=== PATIENT | male | born 1955 | race Caucasian/White ===

== ENCOUNTER 2023-01-15 14:42 | Emergency (ER) | payer BC, SELFPAY ==
[2023-01-15] VITALS (7 sets, daily range): BP systolic 130–151; BP diastolic 74–93; PULSE 77–97; RESP 16–18; TEMP 36.6; O2SAT 97–98; BMI 30.2
--- NOTE | 2023-01-15 15:24 | EX.ED.VIS.PS ---
HPI HPI - Psych History of Present Illness Chief Complaint: Suicidal Informant: patient Onset/Context/Timing Onset: Weeks (6 weeks but worse over the last 3 to 4 days) Context: Gradual Onset Timing: Waxes and wanes Worsened by: Situational factors Relieved by: Going to work Associated Symptoms Associated Symptoms - Psych: Positive for Depressed and Suicidal Thoughts; Negative for Paranoia, Visual Hallucinations or Auditory Hallucinations Specific plan (suicidal thought): Shooting self Narrative Narrative: Patient presents with depression and suicidal ideation that has been waxing and waning for the last 6 weeks. Patient states it is gotten worse over the last 4 days. Patient states it gets better whenever he goes to work. Patient states that his work takes his mind off of his stressors. Patient states he has had thoughts of going into his barn and using his 22 rifle to shoot himself. Patient denies any visual or auditory hallucinations. Patient denies any homicidal ideations. Patient states he switched pharmacies recently but his medications have remained the same. states that his medications now come from a different manufacture and is wondering if this has any effect. also states that the patient has had a history of hyperthyroidism but has been off of any medications for a while now. states his doctor discontinued his thyroid medications. [facility] Medical History (Updated 01/15/23 @ 17:[address] Jayant Conti, ) Anxiety Asthma Bipolar disorder Head trauma Home Medications albuterol sulfate 90 mcg/actuation aerosol inhaler 2 inh inhalation Q4H PRN WHEEZING 01/15/23 [History Last Taken Unknown] azelastine 137 mcg (0.1 %) nasal spray aerosol 1 spray intranasal BID 01/15/23 [History Last Taken Unknown] budesonide-formoterol HFA 80 mcg-4.5 mcg/actuation aerosol inhaler (Symbicort) 2 puff inhalation BID 01/15/23 [History Last Taken Unknown] bupropion HCl 450 mg 24 hr tablet, extended release 450 mg PO DAILY 01/15/23 [History Last Taken Unknown] clonazepam 0.5 mg tablet 0.5 mg PO QHS 01/15/23 [History Last Taken Unknown] lamotrigine 100 mg tablet (Lamictal) 100 mg PO DAILY 01/15/23 [History Last Taken Unknown] quetiapine 50 mg tablet (Seroquel) 50 mg PO QHS 01/15/23 [History Last Taken Unknown] Allergy/AdvReac Type Severity Reaction Status Date / Time levofloxacin [From Levaquin] Allergy Anaphylaxis Verified 01/15/23 14:47 Penicillins Allergy Other Verified 01/15/23 14:47 Sulfa (Sulfonamide Allergy PT UNSURE Verified 01/15/23 14:47 Antibiotics) OF REACTION Surgical History (Updated 01/15/23 @ 15:[address] Jayant Conti DO) Hx of splenectomy Social History Smoking Status: Never smoker ROS ROS ED Constitutional Constitutional ED: Denies chills or fever(s) Eyes Eyes: Denies blurry vision or change in vision ENT ENT ED: Denies rhinorrhea or sore throat Cardiovascular Cardiovascular: Denies chest pain or palpitations Respiratory/Chest Respiratory/Chest: Denies cough or dyspnea Gastrointestinal Gastrointestinal: Denies nausea or vomiting Genitourinary Genitourinary ED: Denies dysuria or hematuria Musculoskeletal Musculoskeletal: Denies back pain or neck pain Integumentary Denies abscess or rash Neurologic Neurologic: Denies headache(s) or weakness Psychiatric Psychiatric: Reports depression, suicidal ideation and suicidal thoughts Allergic/Immunologic Allergic/Immunologic ED: Denies mouth swelling or urticaria EXAM Physical Exam Const Vital Signs: 01/15/23 14:43 01/15/23 16:59 01/15/23 17:06 Temperature 98 F Temperature Source Temporal Pulse Rate 97 Respiratory Rate 16 16 16 Blood Pressure 130/85 H Blood Pressure Mean 100 Pulse Ox 98 Oxygen Delivery Method Room Air 01/15/23 18:15 01/15/23 19:06 Temperature Temperature Source Pulse Rate 77 Respiratory Rate 18 16 Blood Pressure 151/93 H Blood Pressure Mean 112 Pulse Ox 97 Oxygen Delivery Method Room Air Positive well nourished and well developed General Appearance ED: well developed and NAD HEENT normocephalic and atraumatic Neck supple and no JVD Resp normal respiratory effort and clear to auscultation bilaterally Cardio no murmurs Rate: regular rate Rhythm: regular rhythm GI non-tender and non-distended Auscultation: normoactive bowel sounds Palpation: soft Extremity normal to inspection General Extremety ED: Negative for edema or tenderness General Extremity: Negative for edema Neuro oriented x3, CN's II-XII intact bilaterally and no sensory deficits noted Sensorium / Orientation: alert Motor Exam: strength 5/5 throughout Psych mental status grossly normal Activity / Motor Behavior: avoids eye contact Speech: normal speech Mood & Affect: depressed and flat affect Thought Content: suicidality, No homicidality, No delusion(s) and No hallucination(s) Skin Rashes: no rashes MDM MDM MDM Narrative Medical decision making narrative: Differential diagnosis includes depression, suicidal ideation, and bipolar disorder. Screening labs will be obtained to assess for medical clearance. CBC will be obtained to assess for leukocytosis and anemia. Comprehensive metabolic profile will be obtained to assess for hepatic function, renal function, and electrolyte abnormality. Urine tox screen will be obtained to assess for substance abuse. Serum alcohol level will be obtained to assess for alcohol intoxication. COVID-19 rapid antigen will be obtained to assess for COVID infection. Lab Data Attestation: I reviewed the patient's lab results. Lab results narrative: CBC was reviewed and was within normal limits. Comprehensive metabolic profile was reviewed and was within normal limits. Serum alcohol level was reviewed and was normal. Urine tox screen was reviewed and was positive for MDMA. COVID-19 rapid antigen was reviewed and was negative. Labs: Laboratory Results - last 24 hr 01/15/23 01/15/23 01/15/23 15:30 15:30 15:30 WBC 9.0 RBC 4.49 L Hgb 14.2 Hct 42.0 MCV 93.5 MCH 31.6 MCHC 33.8 RDW Std Deviation 45.1 H RDW Coeff of Vania 13.2 Plt Count 264 MPV 8.9 Immature Gran % (Auto) 0.200 Neut % (Auto) 69.5 Lymph % (Auto) 18.6 L [place] % (Auto) 8.3 Eos % (Auto) 3.1 Baso % (Auto) 0.3 Absolute Neuts (auto) 6.3 Absolute Lymphs (auto) 1.68 Nucleated RBC % 0 Sodium 138 Potassium 3.7 Chloride 107 Carbon Dioxide 28.0 Anion Gap 3 L BUN 14 Creatinine 1.07 Estim Creat Clear Calc 80.02 Est GFR (MDRD) Af Amer 89 Est GFR (MDRD) Non-Af 74 BUN/Creatinine Ratio 13.1 Glucose 99 Calcium 9.5 Total Bilirubin 0.50 AST 15 ALT 20 Alkaline Phosphatase 66 Total Protein 7.3 Albumin 3.8 Globulin 3.5 Albumin/Globulin Ratio 1.1 Urine Opiates Screen Urine Methadone Screen Ur Barbiturates Screen Ur Phencyclidine Scrn Ur Amphetamines Screen MDMA (Ecstasy) Screen U Benzodiazepines Scrn Urine Cocaine Screen U Cannabinoids Screen Ur Drug Screen Comment Ethyl Alcohol 4.0 01/15/23 16:45 WBC RBC Hgb Hct MCV MCH MCHC RDW Std Deviation RDW Coeff of Vania Plt Count MPV Immature Gran % (Auto) Neut % (Auto) Lymph % (Auto) [place] % (Auto) Eos % (Auto) Baso % (Auto) Absolute Neuts (auto) Absolute Lymphs (auto) Nucleated RBC % Sodium Potassium Chloride Carbon Dioxide Anion Gap BUN Creatinine Estim Creat Clear Calc Est GFR (MDRD) Af Amer Est GFR (MDRD) Non-Af BUN/Creatinine Ratio Glucose Calcium Total Bilirubin AST ALT Alkaline Phosphatase Total Protein Albumin Globulin Albumin/Globulin Ratio Urine Opiates Screen NEGATIVE Urine Methadone Screen NEGATIVE Ur Barbiturates Screen NEGATIVE Ur Phencyclidine Scrn NEGATIVE Ur Amphetamines Screen NEGATIVE MDMA (Ecstasy) Screen POSITIVE H U Benzodiazepines Scrn NEGATIVE Urine Cocaine Screen NEGATIVE U Cannabinoids Screen NEGATIVE Ur Drug Screen Comment Ethyl Alcohol Management Discussion w/another healthcare provider: 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 She will attempt to place the patient in a psychiatric facility for his depression and suicidal ideation. Patient was accepted to [facility] psychiatric department. Patient will be transferred there. [place] slip was filled out. Transfer form was filled out. Patient is agreeable with the plan. All questions were answered. Discharge Plan Triage Chief Complaint: Suicidal ED Provider: Jayant Conti Dx/Rx/DC Orders Clinical Impression: Suicidal ideation, Bipolar disorder, Depression Prescriptions: No Action clonazepam 0.5 mg Tablet 0.5 mg PO QHS Rx Instructions: administer 30 minutes before bedtime azelastine 137 mcg (0.1 %) Aerosol,[place] 1 spray INTRANASAL BID Rx Instructions: administer into each nostril lamotrigine [Lamictal] 100 mg Tablet 100 mg PO DAILY quetiapine [Seroquel] 50 mg Tablet 50 mg PO QHS bupropion HCl 450 mg Tablet Extended Release 24 Hr 450 mg PO DAILY albuterol sulfate 90 mcg/actuation Hfa Aerosol Inhaler 2 inh INHALATION Q4H PRN (Reason: WHEEZING) budesonide-formoterol [Symbicort] 80-4.5 mcg/actuation Hfa Aerosol Inhaler 2 puff INHALATION BID Primary Care Provider: Anibal Murphy Referrals: Anibal Murphy MD [Primary Care Provider] - Disposition Disposition: Psychiatric Hospital or Unit Discharge Location: Other Acute Care Hospital
[2023-01-15 15:38] LABS: Absolute Lymphocyte Count 1.68 X10^3/uL (0.83-4.51); Absolute Neutrophil Count 6.3 X10^3/uL (2.0-7.7); Basophil# 0.03 X10^3/uL; Basophil% 0.3 % (0-1); Eosinophil# 0.28 X10^3/uL; Eosinophils% 3.1 % (0-5); Hemoglobin 14.2 g/dL (13.0-16.5); Lymphocyte # 1.68 X10^3/ul (0.83-4.51); Lymphocyte % 18.6 % (19-41); Mean Corp Hgb Conc 33.8 g/dL (32-36); Mean Corpuscular Hgb 31.6 pg (27.0-32.0); Mean Corpuscular Volume 93.5 fL (80-94); Mean Platelet Vol. 8.9 fl (6.2-12.0); Monocyte# 0.75 X10^3/uL; Monocyte% 8.3 % (0-10); NRBC Flagged by Analyzer 0 % (0-5); Neutrophil # 6.28 X10^3/uL (2.7-7.7); Neutrophil % 69.5 % (47-70); Platelet Count 264 K/mm3 (150-450); RBC Distribution Width CV 13.2 % (11.6-14.6); RBC Distribution Width SD 45.1 fl (35.1-43.9); Red Blood Count 4.49 M/mm3 (4.6-6.2)
[2023-01-15 15:54] LABS: ALB/GLOB Ratio 1.1 RATIO (0.9-2.4); AST(SGOT) 15 U/L (15-37); Alanine Aminotransfer ALT/SGPT 20 U/L (16-61); Albumin, Serum 3.8 g/dL (3.2-5.0); Alkaline Phosphatase 66 U/L (45-117); Anion Gap 3 (5-15); BUN 14 mg/dL (7-18); BUN/Creat Ratio 13.1 RATIO (10-20); Calcium,Total 9.5 mg/dL (8.5-10.1); Chloride 107 mmol/L (98-107); Creatinine, Serum 1.07 mg/dL (0.70-1.30); EST Glomerular Filtration Rate 74 mL/min (>60); Est Glom Filt Rate - Afr Amer 89 mL/min (>60); Estimated Creatinine Clearance 80.02 ml/min; Globulin 3.5 g/dL (2.2-4.2); Glucose 99 mg/dL (74-106); Potassium 3.7 mmol/L (3.5-5.1); Protein, Total 7.3 g/dL (6.4-8.2); Sodium Level 138 mmol/L (136-145)
[2023-01-15 17:16] LABS: Amphetamine Urine VISTA NEGATIVE (<1000 ng/mL); Barbiturate Urine VISTA NEGATIVE (< 200 ng/mL); Benzodiazepine Urine VISTA NEGATIVE (< 200 ng/mL); Cocaine Urine VISTA NEGATIVE (< 300 ng/mL); Ecstacy Urine VISTA POSITIVE (< 500 ng/mL); Methadone Urine VISTA NEGATIVE (< 300 ng/mL); PCP Urine VISTA NEGATIVE (< 25 ng/mL); THC Urine VISTA NEGATIVE (< 50 ng/mL); Vista UDS pH Range 6
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
--- NOTE | 2023-01-15 18:26 | CM.ED ---
Addendum entered by Kacey Ken 01/15/23 19:19: Patient has been accepted to [facility], [facility] [place], [facility] Unit, [facility] [id number]. Admissions staff requesting ETA with [facility]. Hardware Trainer to coordinate transportation. Plan: [facility] AD Lam Addendum entered by Kacey Ken 01/15/23 18:54: SW assisted the patient in completing consent PW and signed as a witness. SW faxed documents to [facility]. Plan: [facility] Care AD Lam Original Note: Social Work Note Patient's requesting a facility close to their home in [place]. SW located three within an hour from [place]: [facility], [facility] and [facility]. SW contacted [facility] and inquired about bed availability, admissions staff report they wouldn't be able to accept until tomorrow morning. SW contacted [facility] and inquired about available beds, beds available. SW provided verbal referral. SW contacted [facility] and inquired about available beds, admissions staff report beds available. SW reviewed possible referrals with patient and patient's . Patient's would prefer [facility] but due to delayed discharge there she is agreeable to [facility]. Patient's inquiring about facilities and voiced some general anxiety. SW provided emotional support and explained she would have the facility contact her to further answer her questions. SW was contacted by [facility] and they are able to accept patient and will be sending consent forms for patient to complete. Plan: [facility] Care AD Lam
--- NOTE | 2023-01-15 19:26 | ED.RN ---
THIS WOOD PATTERN[employer]KER CALLED FOR PHYSICIANS TRANSPORT. GIVEN 3 HR ETA ([id number])
--- NOTE | 2023-01-15 21:46 | ED.RN ---
rEPORT CALLED TO [facility]
== END 2023-01-15 21:15 ==
PROVIDERS: Emergency Provider Emergency Medicine; Visit Provider Emergency Medicine
DX: F31.9 Bipolar disorder, unspecified (principal); R45.851 Suicidal ideations
CPT/HCPCS: 80053; 80307; 82077; 85025; 87811; 99284